=== PATIENT | male | born 1935 | race Caucasian/White ===

== ENCOUNTER 2018-12-31 09:20 | Outpatient (CLI) | payer MEDICARE, OTHER ==
[2016-07-24 08:58] VITALS: BP 100/54
[2018-12-31 12:25] LABS: eGFR (Non-African) > 60
== END 2018-12-31 09:22 ==
LOC: LAB 09:20
PROVIDERS: ATTEND Family Medicine
DX: Z13.6 Encounter for screening for cardiovascular disorders (principal)
CPT/HCPCS: 36415; 80053; 80061